=== PATIENT | female | born 1935 | race Two or more races ===

== ENCOUNTER 2017-11-22 15:48 | Inpatient (IN) | payer MEDICARE, OTHER ==
[~2017-11-22] VITALS: Ht 154.9 cm; Wt 63.5 kg
[2017-11-22] MEDS ORDERED: NS 250 ML IV ONE (16:03)
[2017-11-22 16:20] VITALS: BP 122/62
[2017-11-22] MEDS ORDERED: dilTIAZem HCl 25mg/5ml Inj IVP ONE (16:45)
[2017-11-22 16:46] LABS: EOSINOPHILS % (AUTO) 1.5 % (0.0-3.0); LYMPHOCYTES % (AUTO) 38.6 % (20.0-45.0); MEAN CORPUSCULAR HEMOGLOBIN 29.4 PG (27.0-31.0); MEAN CORPUSCULAR HGB CONC 31.7 G/DL (32.0-36.0); MEAN CORPUSCULAR VOLUME 93 FL (80-99); MEAN PLATELET VOLUME 9.4 FL (6.5-10.1); MONOCYTES % (AUTO) 9.8 % (1.0-10.0); NEUTROPHILS % (AUTO) 49.1 % (45.0-75.0); PLATELET COUNT 159 K/UL (150-450); RED BLOOD COUNT 3.94 M/UL (4.20-5.40); RED CELL DISTRIBUTION WIDTH 12.7 % (11.6-14.8); WHITE BLOOD COUNT 8.6 K/UL (4.8-10.8)
[2017-11-22 17:14] LABS: ANION GAP 8 mmol/L (5-15); CALCIUM 7.8 MG/DL (8.5-10.1); CARBON DIOXIDE 25 MMOL/L (21-32); CHLORIDE 109 MMOL/L (98-107); CREATININE 1.2 MG/DL (0.55-1.30); POTASSIUM 4.3 MMOL/L (3.5-5.1); SODIUM 142 MMOL/L (136-145)
[2017-11-22 17:28] LABS: ALANINE AMINOTRANSFERASE 21 U/L (12-78); ASPARTATE AMINO TRANSFERASE 19 U/L (15-37); CKMB 2.7 NG/ML (0.0-3.6); TOTAL PROTEIN 6.7 G/DL (6.4-8.2)
--- NOTE | 2017-11-22 18:19 | Emergency Room Report ---
History of Present Illness General Chief Complaint: Chest Pain Source: Patient, EMS Present Illness HPI Patient is an 82-year-old female brought in by EMS after increased chest pain. Patient denied prior history of cardiac arrhythmia. She was noted to have increased generalized weakness. She reports having generalized body aches. She was noted to have atrial fibrillation on EKG by EMS. Patient was given aspirin and nitroglycerin in the field. She denies prior history of cardiac disease Allergies: Coded Allergies: ACETAMINOPHEN (Verified Allergy, Unknown, 11/27/10) HYDROCODONE (Verified Allergy, Unknown, 11/27/10) Patient History Past Medical History: see triage record Reviewed Nursing Documentation: PMH: Agreed, PSxH: Agreed Nursing Documentation-PMH Hx Cardiac Problems: Yes - Cardiac? Hx Hypertension: Yes Hx Diabetes: Yes Review of Systems All Other Systems: negative except mentioned in HPI Physical Exam Vital Signs Date Time Temp Pulse Resp B/P (MAP) Pulse Ox O2 Delivery O2 Flow Rate FiO2 11/22/17 15:47 98.8 85 18 140/60 96 Room Air 11/22/17 16:20 100 Sp02 EP Interpretation: reviewed, normal General Appearance: normal inspection, well appearing, no apparent distress, alert, GCS 15 Head: atraumatic ENT: normal ENT inspection, hearing grossly normal, normal voice Neck: normal inspection, full range of motion, supple, no bony tend Respiratory: normal inspection, lungs clear, normal breath sounds, no respiratory distress, no retraction, no wheezing Cardiovascular #1: regular rate, rhythm, no edema Gastrointestinal: normal inspection, normal bowel sounds, non tender, soft, no guarding, no hernia Genitourinary: no CVA tenderness Musculoskeletal: normal inspection, back normal, normal range of motion Neurologic: normal inspection, alert, oriented x3, responsive, torch straightener III-XII nml as tested, speech normal Psychiatric: normal inspection, judgement/insight normal, mood/affect normal Skin: normal inspection, normal color, no rash Medical Decision Making Diagnostic Impression: Primary Impression: Chest pain Additional Impression: New onset a-fib ER Course Patient presented for chest pain. Differential diagnosis included but was not limited to acute coronary syndrome, pulmonary embolism, pneumonia, aortic dissection, shingles, pneumothorax, aortic dissection, esophageal rupture, pericarditis. Because of complexity of patient's case laboratory testing and imaging studies were ordered.EKG interpreted by me showed atrial fibrillation with rapid ventricular response. The patient been given aspirin by EMS. Patient was given IV Cardizem that she's noted have a conversion to sinus rhythm.Patient was given IV fluids. The patient noted have elevated BNP she subsequently given IV Lasix.Dr. Patino was contacted for for inpatient management Labs Test 11/22/17 16:07 White Blood Count 8.6 K/UL (4.8-10.8) Red Blood Count 3.94 M/UL (4.20-5.40) Hemoglobin 11.6 G/DL (12.0-16.0) Hematocrit 36.6 % (37.0-47.0) Mean Corpuscular Volume 93 FL (80-99) Mean Corpuscular Hemoglobin 29.4 PG (27.0-31.0) Mean Corpuscular Hemoglobin Concent 31.7 G/DL (32.0-36.0) Red Cell Distribution Width 12.7 % (11.6-14.8) Platelet Count 159 K/UL (150-450) Mean Platelet Volume 9.4 FL (6.5-10.1) Neutrophils (%) (Auto) 49.1 % (45.0-75.0) Lymphocytes (%) (Auto) 38.6 % (20.0-45.0) Monocytes (%) (Auto) 9.8 % (1.0-10.0) Eosinophils (%) (Auto) 1.5 % (0.0-3.0) Basophils (%) (Auto) 1.0 % (0.0-2.0) Sodium Level 142 MMOL/L (136-145) Potassium Level 4.3 MMOL/L (3.5-5.1) Chloride Level 109 MMOL/L (98-107) Carbon Dioxide Level 25 MMOL/L (21-32) Anion Gap 8 mmol/L (5-15) Blood Urea Nitrogen 31 mg/dL (7-18) Creatinine 1.2 MG/DL (0.55-1.30) Estimat Glomerular Filtration Rate mL/min (>60) Glucose Level 153 MG/DL (74-106) Calcium Level 7.8 MG/DL (8.5-10.1) Total Bilirubin 0.2 MG/DL (0.2-1.0) Aspartate Amino Transf (AST/SGOT) 19 U/L (15-37) Alanine Aminotransferase (ALT/SGPT) 21 U/L (12-78) Alkaline Phosphatase 58 U/L (46-116) Total Creatine Kinase 55 U/L (26-308) Creatine Kinase MB 2.7 NG/ML (0.0-3.6) Creatine Kinase MB Relative Index 4.9 Troponin I 0.009 ng/mL (0.000-0.056) Pro-B-Type Natriuretic Peptide 1141 pg/mL (0-125) Total Protein 6.7 G/DL (6.4-8.2) Albumin 3.3 G/DL (3.4-5.0) Globulin 3.4 g/dL Albumin/Globulin Ratio 1.0 (1.0-2.7) EKG Diagnostic Results Rate: tachycardiac - 105 ST Segments: no acute changes Rhythm Strip Diag. Results EP Interpretation: yes Rhythm: no PVC's, no ectopy, other - afib Last Vital Signs Date Time Temp Pulse Resp B/P (MAP) Pulse Ox O2 Delivery O2 Flow Rate FiO2 11/22/17 16:36 96 122/62 11/22/17 16:20 98.8 16 100 Room Air 11/22/17 16:20 100 Status: improved Disposition: ADMITTED INPATIENT Condition: Serious Referrals: NON PHYSICIAN (PCP) Kelvin Chan Nov 22, 2017 18:19
[2017-11-22] MEDS ORDERED: AMLODIPINE BES2.5 MG ORAL (18:38)
[2017-11-22] MEDS ORDERED: LEVOTHYROXINE125 MCG ORAL (18:44)
[2017-11-22] MEDS ORDERED: NAMENDA5 MG ORAL (18:44)
[2017-11-22] MEDS ORDERED: ATORVASTATIN CA20 MG ORAL (18:44)
[2017-11-22] MEDS ORDERED: NEXIUM40 MG ORAL (18:59)
[2017-11-22] MEDS ORDERED: EVISTA60 MG ORAL (18:59)
[2017-11-22] MEDS ORDERED: VASCEPA1 GM PO (18:59)
[2017-11-22] MEDS ORDERED: VOLTAREN100 G1 TP (18:59)
[2017-11-22] MEDS ORDERED: ZANTAC150 MG ORAL (18:59)
[2017-11-22 19:00] VITALS: BP 113/94
[2017-11-22] MEDS ORDERED: DUREZOL5 M1 OP (19:05)
[2017-11-22] MEDS ORDERED: CYMBALTA60 MG ORAL (19:05)
[2017-11-22] MEDS ORDERED: ERYTHROMYCIN3.5 GM LEFT EYE (19:05)
[2017-11-22] MEDS ORDERED: FLUOCINOLONE AC20 ML LEFT EAR (19:06)
[2017-11-22] MEDS ORDERED: DUREZOL5 M1 LEFT EYE (19:07)
[2017-11-22] MEDS ORDERED: DONEPEZIL HCL5 MG ORAL (19:10)
[2017-11-22] MEDS ORDERED: METOPROLOL SUCC25 MG ORAL (19:10)
[2017-11-22] MEDS ORDERED: ASPIRIN81 MG ORAL (19:10)
[2017-11-22] MEDS ORDERED: FISH OIL 1,0001 EAC1 ORAL (19:15)
[2017-11-22] MEDS ORDERED: MULTI VITAMIN1 EACH ORAL (19:15)
[2017-11-22] MEDS ORDERED: Albuterol/Ipratropium 3ml neb HHN PRN (20:00)
[2017-11-22] MEDS ORDERED: Morphine Sulfate 4mg/ml Inj IVP PRN (20:00)
[2017-11-22] MEDS ORDERED: Mylanta II UD 30ml ORAL PRN (20:00)
[2017-11-22] MEDS ORDERED: Miralax 17gm pkt ORAL PRN (20:00)
[2017-11-22] MEDS ORDERED: Morphine Sulfate 2mg/ml Inj IVP PRN (20:00)
[2017-11-22] MEDS ORDERED: Nitroglycerin Subl 0.4mg tab SL PRN (20:00)
[2017-11-22 20:17] VITALS: BP 120/86
[2017-11-22] MEDS ORDERED: Atorvastatin 20mg tab ORAL SCH (21:00)
[2017-11-22 21:13] VITALS: BP 129/69
[2017-11-22] MEDS: Heparin 5000 units/ml inj SUBQ SCH (22:48)
[2017-11-22] MEDS: Docusate 100mg cap ORAL SCH (22:50)
[2017-11-23] VITALS: BP 103/59
[2017-11-23 04:00] VITALS: BP 99/54
[2017-11-23] MEDS: Levothyroxine 125mcg tab ORAL SCH (06:40)
[2017-11-23 08:00] VITALS: BP 112/64
[2017-11-23 08:03] LABS: BASOPHILS % (AUTO) 0.9 % (0.0-2.0); EOSINOPHILS % (AUTO) 1.2 % (0.0-3.0); LYMPHOCYTES % (AUTO) 43.1 % (20.0-45.0); MEAN CORPUSCULAR HEMOGLOBIN 30.3 PG (27.0-31.0); MEAN CORPUSCULAR VOLUME 95 FL (80-99); MEAN PLATELET VOLUME 9.8 FL (6.5-10.1); MONOCYTES % (AUTO) 8.2 % (1.0-10.0); NEUTROPHILS % (AUTO) 46.6 % (45.0-75.0); PLATELET COUNT 174 K/UL (150-450); RED BLOOD COUNT 4.06 M/UL (4.20-5.40); RED CELL DISTRIBUTION WIDTH 13.1 % (11.6-14.8); WHITE BLOOD COUNT 6.8 K/UL (4.8-10.8)
[2017-11-23 08:21] LABS: HEMOGLOBIN A1C 5.7 % (4.3-6.0)
[2017-11-23 08:37] LABS: ANION GAP 6 mmol/L (5-15); CALCIUM 8.3 MG/DL (8.5-10.1); CARBON DIOXIDE 29 MMOL/L (21-32); CHLORIDE 109 MMOL/L (98-107); CHOLESTEROL 146 MG/DL (< 200); CHOLESTEROL/HDL RATIO 2.1 (3.3-4.4); CREATININE 1.2 MG/DL (0.55-1.30); MAGNESIUM 1.9 MG/DL (1.8-2.4); POTASSIUM 4.5 MMOL/L (3.5-5.1); SODIUM 144 MMOL/L (136-145); THYROID STIMULATING HORMONE 1.853 uiU/mL (0.358-3.740)
[2017-11-23] MEDS: DULoxetine 30mg cap ORAL SCH (09:33)
[2017-11-23] MEDS: Donepezil 5mg Tab ORAL SCH (09:34)
[2017-11-23] MEDS: Metoprolol Succinate XL 25mg tab ORAL SCH ×2 (09:38→17:12)
[2017-11-23] MEDS: Docusate 100mg cap ORAL SCH ×2 (09:43→20:42)
[2017-11-23] MEDS: Memantine 5 MG TAB ORAL SCH ×2 (09:43→17:12)
[2017-11-23] MEDS: Aspirin Baby 81mg ORAL SCH (09:43)
[2017-11-23] MEDS: Heparin 5000 units/ml inj SUBQ SCH ×2 (09:44→20:42)
[2017-11-23] MEDS: Erythromycin Opth Ointment 3.5gm LEFT EYE SCH (09:47)
--- NOTE | 2017-11-23 11:20 | Diagnostic Imaging Report ---
Indication: Shortness of breath Technique: XRAY Chest 1v Comparison: None Findings: Heart is borderline enlarged. Atherosclerotic calcifications noted within a tortuous thoracic aorta. There is mild central pulmonary vascular congestion. There is no alayna alveolar edema. No definite focal airspace consolidation. No pleural effusion or pneumothorax. Osteopenia with mild scoliosis and multilevel degenerative change of the thoracic spine. No acute osseous abnormality seen. Impression: Cardiomegaly with mild pulmonary vascular congestion. No focal consolidation.
[2017-11-23 12:00] VITALS: BP 135/68
--- NOTE | 2017-11-23 14:24 | Cardiology Report ---
APPROVED REPORT EXAM: Two-dimensional and M-mode echocardiogram with Doppler and color Doppler. INDICATION Atrial Fibrillation M-Mode DIMENSIONS IVSd1.0 (0.7-1.1cm)Left Atrium (MM)4.4 (1.6-4.0cm) LVDd3.5 (3.5-5.6cm)Aortic Root2.3 (2.0-3.7cm) PWd1.1 (0.7-1.1cm)Aortic Cusp Exc.1.5 (1.5-2.0cm) LVDs2.0 (2.5-4.0cm) PWs1.5 cm Normal left ventricular chamber size, systolic function and wall motion. Left ventricular ejection fraction estimated to be 65 %. No evidence of left ventricular hypertrophy. Anterior Echo-free space, may be due to pericardial fat or effusion. All other cardiac chamber sizes are within normal limits. Focal aortic valve sclerosis with adequate cusp excursion. Thickened mitral valve leaflets with normal excursion. Mild mitral annulus and aortic root calcification. Normal pulmonic valve structure. Normal tricuspid valve structure. IVC at normal size with physiologic collapse. A color flow and spectral Doppler study was performed and revealed: No aortic regurgitation. Trace mitral regurgitation. Mitral diastolic velocities suggest mild left ventricular dysfunction (Grade I ). Mild tricuspid regurgitation. Tricuspid systolic velocities suggests peak right ventricular systolic pressure of 34 mmHg. Mild to moderate pulmonic regurgitation present.
--- NOTE | 2017-11-23 14:29 | Cardiology Progress Note ---
Subjective Subjective [id number] Objective Last 24 Hour Vital Signs Date Time Temp Pulse Resp B/P (MAP) Pulse Ox O2 Delivery O2 Flow Rate FiO2 11/23/17 12:00 74 11/23/17 12:00 97.7 72 21 135/68 97 Room Air 11/23/17 09:46 67 112/64 11/23/17 09:38 67 112/64 11/23/17 08:00 97.5 67 22 112/64 97 Room Air 11/23/17 08:00 70 11/23/17 04:00 97.5 65 16 99/54 97 11/23/17 04:00 Room Air 11/23/17 04:00 65 11/23/17 00:00 72 11/23/17 00:00 Room Air 11/23/17 00:00 97.9 71 18 103/59 100 11/22/17 21:13 97.2 67 18 129/69 95 11/22/17 20:24 74 18 120/86 98 Room Air 11/22/17 20:17 98.8 74 18 120/86 98 Room Air 100 11/22/17 19:00 72 20 113/94 98 Room Air 100 11/22/17 16:36 96 122/62 11/22/17 16:20 98.8 96 16 122/62 100 Room Air 11/22/17 16:20 96 16 Room Air 100 11/22/17 15:47 98.8 85 18 140/60 96 Room Air Intake and Output 11/22/17 11/23/17 19:00 07:00 Intake Total 250 ml 270 ml Balance 250 ml 270 ml Intake Oral 270 ml IV Total 250 ml # Voids 2 Laboratory Tests Test 11/22/17 16:07 11/22/17 21:50 11/23/17 06:55 White Blood Count 8.6 K/UL (4.8-10.8) 6.8 K/UL (4.8-10.8) Red Blood Count 3.94 M/UL (4.20-5.40) L 4.06 M/UL (4.20-5.40) L Hemoglobin 11.6 G/DL (12.0-16.0) L 12.3 G/DL (12.0-16.0) Hematocrit 36.6 % (37.0-47.0) L 38.4 % (37.0-47.0) Mean Corpuscular Volume 93 FL (80-99) 95 FL (80-99) Mean Corpuscular Hemoglobin 29.4 PG (27.0-31.0) 30.3 PG (27.0-31.0) Mean Corpuscular Hemoglobin Concent 31.7 G/DL (32.0-36.0) L 32.0 G/DL (32.0-36.0) Red Cell Distribution Width 12.7 % (11.6-14.8) 13.1 % (11.6-14.8) Platelet Count 159 K/UL (150-450) 174 K/UL (150-450) Mean Platelet Volume 9.4 FL (6.5-10.1) 9.8 FL (6.5-10.1) Neutrophils (%) (Auto) 49.1 % (45.0-75.0) 46.6 % (45.0-75.0) Lymphocytes (%) (Auto) 38.6 % (20.0-45.0) 43.1 % (20.0-45.0) Monocytes (%) (Auto) 9.8 % (1.0-10.0) 8.2 % (1.0-10.0) Eosinophils (%) (Auto) 1.5 % (0.0-3.0) 1.2 % (0.0-3.0) Basophils (%) (Auto) 1.0 % (0.0-2.0) 0.9 % (0.0-2.0) Sodium Level 142 MMOL/L (136-145) 144 MMOL/L (136-145) Potassium Level 4.3 MMOL/L (3.5-5.1) 4.5 MMOL/L (3.5-5.1) Chloride Level 109 MMOL/L (98-107) H 109 MMOL/L (98-107) H Carbon Dioxide Level 25 MMOL/L (21-32) 29 MMOL/L (21-32) Anion Gap 8 mmol/L (5-15) 6 mmol/L (5-15) Blood Urea Nitrogen 31 mg/dL (7-18) H 29 mg/dL (7-18) H Creatinine 1.2 MG/DL (0.55-1.30) 1.2 MG/DL (0.55-1.30) Estimat Glomerular Filtration Rate mL/min (>60) mL/min (>60) Glucose Level 153 MG/DL (74-106) H 128 MG/DL (74-106) H Calcium Level 7.8 MG/DL (8.5-10.1) L 8.3 MG/DL (8.5-10.1) L Total Bilirubin 0.2 MG/DL (0.2-1.0) Aspartate Amino Transf (AST/SGOT) 19 U/L (15-37) Alanine Aminotransferase (ALT/SGPT) 21 U/L (12-78) Alkaline Phosphatase 58 U/L (46-116) Total Creatine Kinase 55 U/L (26-308) Creatine Kinase MB 2.7 NG/ML (0.0-3.6) Creatine Kinase MB Relative Index 4.9 Troponin I 0.009 ng/mL (0.000-0.056) 0.082 ng/mL (0.000-0.056) 0.065 ng/mL (0.000-0.056) Pro-B-Type Natriuretic Peptide 1141 pg/mL (0-125) H Total Protein 6.7 G/DL (6.4-8.2) Albumin 3.3 G/DL (3.4-5.0) L Globulin 3.4 g/dL Albumin/Globulin Ratio 1.0 (1.0-2.7) Hemoglobin A1c 5.7 % (4.3-6.0) Magnesium Level 1.9 MG/DL (1.8-2.4) Triglycerides Level 93 MG/DL (30-150) Cholesterol Level 146 MG/DL (< 200) LDL Cholesterol 62 mg/dL (<100) HDL Cholesterol 68 MG/DL (40-60) H Cholesterol/HDL Ratio 2.1 (3.3-4.4) L Thyroid Stimulating Hormone (TSH) 1.853 uiU/mL (0.358-3.740) Microbiology Date/Time Source Procedure Growth Status 11/22/17 16:10 Nasal Nares Influenza Types A,B Antigen (SUSANA) - Final Complete SAMANTHABARRY Nov 23, 2017 14:28
--- NOTE | 2017-11-23 14:54 | Cardiology Report ---
APPROVED REPORT EKG Measurement Heart [id number] Atrial fibrillation with rapid ventricular response Abnormal ECG
--- NOTE | 2017-11-23 15:26 | History & Physical ---
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 She feels better and denies any exertional CP or SOB, no SILVA, no F/C, no N/V/D/C/abdominal pain or urinary complaints, no palpitations. No T/E/D use, no ill contacts. She denies any cardiac hx but upon review of [facility] records she had an episode of AVNRT in 2013 @ [facility]. PMH: GEJ CA S/P resection, L breast CA S/P resection, HTN, hypothyroidism, GERD and AVNRT PSH: resection of gastric tumor, breast lumpectomy ALL: Hydrocodone Active Scripts Medications Dose Route/Sig Max Daily Dose Days Date Category Dose Instructions Multi Vitamin Daily (Multivitamin) 1 Each Tablet 1 Tab ORAL DAILY 11/22/17 Reported Fish Oil 1,000 Mg Softgel* (Olivebridge-3 Fatty Acids/Fish Oil*) 1 Each Capsule 1 Cap ORAL DAILY 11/22/17 Reported Aspirin* (Aspirin) 81 Mg Tab.chew 81 Mg ORAL DAILY 11/22/17 Reported Metoprolol Succinate* (Metoprolol Succinate) 25 Mg Tab.er.24h 25 Mg ORAL BID 11/22/17 Reported Donepezil Hcl* (Donepezil HCl) 5 Mg Tablet 5 Mg ORAL DAILY 11/22/17 Reported Durezol (Difluprednate) 5 Ml Drops 1 Drp LEFT EYE BID 11/22/17 Reported Fluocinolone Acetonide Oil 20 Ml Drops 1 Drp LEFT EAR BID 11/22/17 Reported Erythromycin* (Erythromycin Base) 3.5 Gm Oint...g. 1 Applic LEFT EYE DAILY 11/22/17 Reported Cymbalta* (Duloxetine HCl) 60 Mg Capsule.dr 60 Mg ORAL DAILY 11/22/17 Reported Voltaren (Diclofenac Sodium) 100 Gm Gel..gram. 100 Gm TP Q6HR PRN 11/22/17 Reported Vascepa (Icosapent Ethyl) 1 Gm Capsule 1 Gm PO DAILY 11/22/17 Reported Zantac* (Ranitidine HCl) 150 Mg Tablet 150 Mg ORAL DAILY 11/22/17 Reported Evista* (Raloxifene HCl) 60 Mg Tablet 60 Mg ORAL DAILY 11/22/17 Reported Nexium (Esomeprazole Magnesium) 40 Mg Capsule.dr 40 Mg ORAL DAILY 11/22/17 Reported Namenda* (Memantine) 5 Mg Tablet 5 Mg ORAL TWICE A DAY 11/22/17 Reported Levothyroxine Sodium* (Levothyroxine Sodium) 125 Mcg Tablet 125 Mcg ORAL DAILY 11/22/17 Reported Take in the morning on an empty stomach, at least 30 minutes before food. Atorvastatin Calcium* (Atorvastatin Calcium) 20 Mg Tablet 20 Mg ORAL BEDTIME 11/22/17 Reported Amlodipine Besylate* (Amlodipine Besylate) 2.5 Mg Tablet 2.5 Mg ORAL DAILY 11/22/17 Reported SHx: No T/E/D use FHx: N/C ROS: negative other than HPI PE: Last Vital Signs Date Time Temp Pulse Resp B/P (MAP) Pulse Ox O2 Delivery O2 Flow Rate FiO2 11/23/17 12:00 74 11/23/17 12:00 97.7 21 135/68 97 Room Air 11/22/17 20:17 100 GEN: Elderly female, NAD HEENT: NC/AT, OPC c MMM\ NECK: Supple s LAD or JVD CHEST: CTA COR: RRR ABD: S/NT/ND c NABS EXT: No C/C/E ECG: AFcRVR CXR: CM mild PVC TTE: Normal left ventricular chamber size, systolic function and wall motion. Left ventricular ejection fraction estimated to be 65 %. No evidence of left ventricular hypertrophy. Anterior Echo-free space, may be due to pericardial fat or effusion. All other cardiac chamber sizes are within normal limits. Focal aortic valve sclerosis with adequate cusp excursion. Thickened mitral valve leaflets with normal excursion. Mild mitral annulus and aortic root calcification. Normal pulmonic valve structure. Normal tricuspid valve structure. IVC at normal size with physiologic collapse. A color flow and spectral Doppler study was performed and revealed: No aortic regurgitation. Trace mitral regurgitation. Mitral diastolic velocities suggest mild left ventricular dysfunction (Grade I ) . Mild tricuspid regurgitation. Tricuspid systolic velocities suggests peak right ventricular systolic pressure of 34 mmHg. Mild to moderate pulmonic regurgitation present. Laboratory Tests Test 11/22/17 16:07 11/22/17 21:50 11/23/17 06:55 White Blood Count 8.6 K/UL (4.8-10.8) 6.8 K/UL (4.8-10.8) Red Blood Count 3.94 M/UL (4.20-5.40) L 4.06 M/UL (4.20-5.40) L Hemoglobin 11.6 G/DL (12.0-16.0) L 12.3 G/DL (12.0-16.0) Hematocrit 36.6 % (37.0-47.0) L 38.4 % (37.0-47.0) Mean Corpuscular Volume 93 FL (80-99) 95 FL (80-99) Mean Corpuscular Hemoglobin 29.4 PG (27.0-31.0) 30.3 PG (27.0-31.0) Mean Corpuscular Hemoglobin Concent 31.7 G/DL (32.0-36.0) L 32.0 G/DL (32.0-36.0) Red Cell Distribution Width 12.7 % (11.6-14.8) 13.1 % (11.6-14.8) Platelet Count 159 K/UL (150-450) 174 K/UL (150-450) Mean Platelet Volume 9.4 FL (6.5-10.1) 9.8 FL (6.5-10.1) Neutrophils (%) (Auto) 49.1 % (45.0-75.0) 46.6 % (45.0-75.0) Lymphocytes (%) (Auto) 38.6 % (20.0-45.0) 43.1 % (20.0-45.0) Monocytes (%) (Auto) 9.8 % (1.0-10.0) 8.2 % (1.0-10.0) Eosinophils (%) (Auto) 1.5 % (0.0-3.0) 1.2 % (0.0-3.0) Basophils (%) (Auto) 1.0 % (0.0-2.0) 0.9 % (0.0-2.0) Sodium Level 142 MMOL/L (136-145) 144 MMOL/L (136-145) Potassium Level 4.3 MMOL/L (3.5-5.1) 4.5 MMOL/L (3.5-5.1) Chloride Level 109 MMOL/L (98-107) H 109 MMOL/L (98-107) H Carbon Dioxide Level 25 MMOL/L (21-32) 29 MMOL/L (21-32) Anion Gap 8 mmol/L (5-15) 6 mmol/L (5-15) Blood Urea Nitrogen 31 mg/dL (7-18) H 29 mg/dL (7-18) H Creatinine 1.2 MG/DL (0.55-1.30) 1.2 MG/DL (0.55-1.30) Estimat Glomerular Filtration Rate mL/min (>60) mL/min (>60) Glucose Level 153 MG/DL (74-106) H 128 MG/DL (74-106) H Calcium Level 7.8 MG/DL (8.5-10.1) L 8.3 MG/DL (8.5-10.1) L Total Bilirubin 0.2 MG/DL (0.2-1.0) Aspartate Amino Transf (AST/SGOT) 19 U/L (15-37) Alanine Aminotransferase (ALT/SGPT) 21 U/L (12-78) Alkaline Phosphatase 58 U/L (46-116) Total Creatine Kinase 55 U/L (26-308) Creatine Kinase MB 2.7 NG/ML (0.0-3.6) Creatine Kinase MB Relative Index 4.9 Troponin I 0.009 ng/mL (0.000-0.056) 0.082 ng/mL (0.000-0.056) 0.065 ng/mL (0.000-0.056) Pro-B-Type Natriuretic Peptide 1141 pg/mL (0-125) H Total Protein 6.7 G/DL (6.4-8.2) Albumin 3.3 G/DL (3.4-5.0) L Globulin 3.4 g/dL Albumin/Globulin Ratio 1.0 (1.0-2.7) Hemoglobin A1c 5.7 % (4.3-6.0) Magnesium Level 1.9 MG/DL (1.8-2.4) Triglycerides Level 93 MG/DL (30-150) Cholesterol Level 146 MG/DL (< 200) LDL Cholesterol 62 mg/dL (<100) HDL Cholesterol 68 MG/DL (40-60) H Cholesterol/HDL Ratio 2.1 (3.3-4.4) L Thyroid Stimulating Hormone (TSH) 1.853 uiU/mL (0.358-3.740) ASSESSMENT: 82 F h/o GEJ CA S/P resection, L breast CA S/P resection, HTN, hypothyroidism, GERD and AVNRT p/w atypica CP and AFcRVR now back in NSR after receiving IV Dilt in the Er. 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 Nov 23, 2017 15:26
[2017-11-23 16:00] VITALS: BP 157/70
[2017-11-23 20:00] VITALS: BP 130/68
[2017-11-23] MEDS ORDERED: Atorvastatin 20mg tab ORAL SCH (21:00)
--- NOTE | 2017-11-23 23:30 | Consultation ---
DATE OF CONSULTATION: 11/23/2017 CARDIOLOGY CONSULTATION CONSULTING PHYSICIAN: Nika Campbell M.D. REFERRING PHYSICIAN: Karl Mooney M.D. REASON FOR EVALUATION: Paroxysmal atrial fibrillation. HISTORY OF PRESENT ILLNESS: The patient presented to the emergency department with chest pain and shortness of breath and she was in atrial fibrillation. The rate was 105 beats per minute. She also had some pulmonary vascular congestion on her chest x-ray. According to her, this is a new episode, that lasted for about an hour and so she called the ambulance. 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 PAST MEDICAL HISTORY: Significant for hypertension, hypothyroidism, arthritis, and abdominal pain. MEDICATIONS: At home include atenolol, aspirin, Synthroid, Aricept, Namenda, and multivitamins. ALLERGIES: Not reported. HABITS: No history of drinking, smoking, or drug abuse. SOCIAL HISTORY: She is independent, lives at home. REVIEW OF SYSTEMS: Significant for low back pain. Sometimes, she has shortness of breath in the morning. She has albuterol at home inhaler, but she does not use it. Otherwise, her review of systems was unremarkable. PHYSICAL EXAMINATION: GENERAL: This is a pleasant anxious-appearing lady, not in acute distress. VITAL SIGNS: Blood pressure 110/70, heart rate is 70, oxygen saturation is on room air 97%, and temperature 97.5 degrees. HEENT: PERRLA. EOMI. NECK: Supple. Jugular venous pressure is not elevated. She has brisk carotid upstrokes bilaterally. LUNGS: Clear to auscultation. BREASTS: No masses. HEART: Regular with a positive S4. ABDOMEN: Soft and nontender. EXTREMITIES: Lower extremities, no edema. NEUROLOGIC: Did not reveal any deficits. LABORATORY AND DIAGNOSTIC DATA: Significant for troponin elevation initially 0.09 and then it is up to 0.82 and 0.65. Her calcium was 7.8. Her chloride is 109. Her sodium is normal. LDL is 62. Her CBC is unremarkable. TSH is normal with slightly low hemoglobin. IMPRESSION AND RECOMMENDATIONS: This patient presents with paroxysmal atrial fibrillation. She reports as first episode. She converted to sinus rhythm with intravenous diltiazem. I think, she is on appropriate medical management right now. Consideration should be given to start her on anticoagulation with Xarelto or with Coumadin or with injectable anticoagulant such as Lovenox. However, she is not interested. I discussed with her indications for anticoagulation and she said she wants to go and discuss it with her doctor at [facility] after she is being discharged. In the meanwhile, we are going to the keep her on aspirin and she is on beta-blockers. I am going to follow on the echo report and if the patient is stable, she can be discharged tomorrow. She appears to be euthyroid based on TSH results, so Synthroid dose should be maintained. I would avoid beta-agonist in terms of inhalers unless it is absolutely necessary. Thank you for your consultation. Nika Campbell M.D. DR: MILY JOB#: [id number] CC:
[2017-11-24] VITALS: BP 122/63
[2017-11-24 04:05] VITALS: BP 141/75
[2017-11-24] MEDS: Levothyroxine 125mcg tab ORAL SCH (06:36)
[2017-11-24 08:10] VITALS: BP 141/75
[2017-11-24] MEDS ORDERED: Pneumococcal Vaccine 25mcg/0.5ml IM ONE (09:00)
[2017-11-24] MEDS: Metoprolol Succinate XL 25mg tab ORAL SCH ×2 (09:13→09:14)
[2017-11-24] MEDS: Donepezil 5mg Tab ORAL SCH (09:14)
[2017-11-24] MEDS: DULoxetine 30mg cap ORAL SCH (09:14)
[2017-11-24] MEDS: Docusate 100mg cap ORAL SCH (09:14)
[2017-11-24] MEDS: Aspirin Baby 81mg ORAL SCH (09:15)
[2017-11-24] MEDS: Erythromycin Opth Ointment 3.5gm LEFT EYE SCH (09:15)
[2017-11-24] MEDS: Memantine 5 MG TAB ORAL SCH (09:15)
[2017-11-24] MEDS: Heparin 5000 units/ml inj SUBQ SCH (09:19)
[2017-11-24 12:00] VITALS: BP 143/68
--- NOTE | 2017-11-24 14:42 | Cardiology Progress Note ---
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 Subjective Subjective the patient did not have any more episodes of a fib anxious wants to leave Objective Last 24 Hour Vital Signs Date Time Temp Pulse Resp B/P (MAP) Pulse Ox O2 Delivery O2 Flow Rate FiO2 11/24/17 12:00 63 11/24/17 12:00 97.9 71 19 143/68 98 Room Air 11/24/17 09:14 63 121/68 11/24/17 09:14 63 121/68 11/24/17 09:13 63 121/68 11/24/17 08:10 97.0 66 20 141/75 100 Room Air 11/24/17 08:00 66 11/24/17 04:05 97.7 104 20 141/75 100 Room Air 11/24/17 04:00 Room Air 11/24/17 04:00 57 11/24/17 00:00 97.7 67 20 122/63 95 Room Air 11/24/17 00:00 69 11/24/17 00:00 Room Air 11/23/17 20:00 97.6 69 20 130/68 98 Room Air 11/23/17 20:00 Room Air 11/23/17 20:00 65 11/23/17 17:12 69 157/70 11/23/17 16:00 97.7 70 20 157/70 98 Room Air 11/23/17 16:00 67 General Appearance: no apparent distress, agitated EENT: PERRL/EOMI Neck: supple, no JVD Cardiovascular: regular rhythm Respiratory/Chest: crackles/rales Abdomen: soft Extremities: non-tender Intake and Output 11/23/17 11/24/17 19:00 07:00 # Voids 3 Laboratory Tests Test 11/23/17 16:20 D-Dimer 0.97 mg/L FEU (0.00-0.49) H Microbiology Date/Time Source Procedure Growth Status 11/22/17 16:10 Nasal Nares Influenza Types A,B Antigen (SUSANA) - Final Complete SAMANTHA,BARRY Nov 24, 2017 14:42
--- NOTE | 2017-11-27 06:44 | Discharge Summary ---
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 She feels better and denies any exertional CP or SOB , no SILVA, no F/C, no N/V/D/C/abdominal pain or urinary complaints, no palpitations. No T/E/D use, no ill contacts. She denies any cardiac hx but upon review of [facility] records she had an episode of AVNRT in 2013 @ [facility]. Troponin was unremarkable. Patient was seen by distributor advertising material who recommended anticoagulation but patient refused at this time and would like to follow up with her distributor advertising material to discuss with him further. Patient was NSR and hemodynamically stable prior to discharge. Discharge Medications Continued Medications: Amlodipine Besylate* (Amlodipine Besylate*) 2.5 Mg Tablet 2.5 MG ORAL DAILY Aspirin* (Aspirin*) 81 Mg Tab.chew 81 MG ORAL DAILY Atorvastatin Calcium* (Atorvastatin Calcium*) 20 Mg Tablet 20 MG ORAL BEDTIME Diclofenac Sodium (Voltaren) 100 Gm Gel..gram. 100 GM TP Q6HR PRN for For Pain Difluprednate (Durezol) 5 Ml Drops 1 DRP LEFT EYE BID Donepezil Hcl* (Donepezil Hcl*) 5 Mg Tablet 5 MG ORAL DAILY Duloxetine Hcl* (Cymbalta*) 60 Mg Capsule.dr 60 MG ORAL DAILY Erythromycin Base (Erythromycin*) 3.5 Gm Oint...g. 1 APPLIC LEFT EYE DAILY Esomeprazole Magnesium (Nexium) 40 Mg Capsule.dr 40 MG ORAL DAILY Fluocinolone Acetonide Oil (Fluocinolone Acetonide Oil) 20 Ml Drops 1 DRP LEFT EAR BID Icosapent Ethyl (Vascepa) 1 Gm Capsule 1 GM PO DAILY Levothyroxine Sodium* (Levothyroxine Sodium*) 125 Mcg Tablet 125 MCG ORAL DAILY Take in the morning on an empty stomach, at least 30 minutes before food. Memantine Hcl* (Namenda*) 5 Mg Tablet 5 MG ORAL TWICE A DAY Metoprolol Succinate* (Metoprolol Succinate*) 25 Mg Tab.er.24h 25 MG ORAL BID Multivitamin (Multi Vitamin Daily) 1 Each Tablet 1 TAB ORAL DAILY [place]-3 Fatty Acids/Fish Oil* (Fish Oil 1,000 Mg Softgel*) 1 Each Capsule 1 CAP ORAL DAILY Raloxifene Hcl* (Evista*) 60 Mg Tablet 60 MG ORAL DAILY Ranitidine Hcl* (Zantac*) 150 Mg Tablet 150 MG ORAL DAILY Discharge Condition Upon Discharge: stable Discharge Disposition Patient was discharged to Home with Home Health([id number]) Discharge Diagnoses: (1) New onset a-fib (2) Chest pain Stephanie Singh N.P. Nov 27, 2017 06:44
--- NOTE | 2017-11-27 10:47 | Diagnostic Imaging Report ---
APPROVED REPORT CPT Code: 39035 Present Symptoms Comments: R/O DVT BILATERAL: Imaging reveals a patent deep venous system bilaterally. There is no evidence of thrombus within the femoral, popliteal or tibial segments. The greater saphenous veins are also within normal limits. Doppler indicates normal spontaneous flow within these segments.
== END 2017-11-24 14:17 | disposition home health service (06) | DRG 310 ==
LOC: EDBD 15:48 → EMR 15:59 → 2E 16:34 → EDBEDREQ 16:58
DX: I48.0 Paroxysmal atrial fibrillation (principal); I10 Essential (primary) hypertension; R07.9 Chest pain, unspecified; E03.9 Hypothyroidism, unspecified; K21.9 Gastro-esophageal reflux disease without esophagitis; Z85.3 Personal history of malignant neoplasm of breast; Z88.6 Allergy status to analgesic agent; M19.90 Unspecified osteoarthritis, unspecified site; Z23 Encounter for immunization
CPT/HCPCS: 36415; 71010; 80048; 80053; 80061; 82550; 82553; 83036; 83735; 83880; 84443; 84484; 85025; 85379; 86710; 90732; 93005; 93306; 93970; 99285